=== PATIENT | female | born 1990 | race Hispanic/Latino ===

== ENCOUNTER 2017-07-31 10:17 | Day surgery (SDC) | payer OTHER ==
[2017-07-31] MEDS ORDERED: Midazolam HCl 2 mg/2 ml Vial ONE ×2 (12:44→12:48)
[2017-07-31 12:46] LABS: #Eosinphils 0.1 thou/uL (0.0-0.7); #Lymphocytes 1.3 thou/uL (1.20-3.40); #Monocytes 0.4 thou/uL (0.11-0.59); #Neutrophils 1.8 thou/uL (1.40-6.50); %Basophils 0.8 % (0.0-1.0); %Eosinophils 1.8 % (0.0-10.0); %Lymphocytes 35.2 % (21.0-51.0); %Monocytes 11.7 % (0.0-10.0); %Neutrophils 50.6 % (42.0-75.0); Hemoglobin 11.7 g/dL (12.0-16.0); Mean Corpuscular HGB CONC 32.6 g/dL (32.0-36.0); Mean Corpuscular Hemoglobin 30.5 pg (27.0-31.0); Mean Corpuscular Volume 93.6 fl (81.0-99.0); Platelet Count 220 thou/uL (130-400); RBC Distribution Width 12.5 % (11.5-14.5); Red Blood Cell (RBC) Count 3.84 mill/uL (4.20-5.40); White Blood Cell (WBC) Count 3.6 thou/uL (4.8-10.8)
[2017-07-31] MEDS ORDERED: HYDROmorphone 0.5 MG/0.5 ML SYRINGE ONE (12:48)
[2017-07-31] MEDS ORDERED: Lidocaine 1% w/Epinephrine 1:200K 30 ML VIAL ONE (12:57)
[2017-07-31] MEDS ORDERED: Ferric Subsulfate 8 ML BOT ONE (12:57)
[2017-07-31 13:17] LABS: BHCG - Serum Negative (NEGATIVE); Pregs Control Background? CLEAR/WHITE (CLR/WHITE); Pregs Control Bar Appear? YES (CONTROL BAR)
[2017-07-31] MEDS ORDERED: Lidocaine 1% PF 5 ML VIAL ONE (16:57)
[2017-07-31] MEDS ORDERED: PROPOFOL 200 MG/20 ML VIAL ONE (16:57)
[2017-07-31] MEDS ORDERED: Ondansetron HCl/PF 4 MG/2 ML Vial ONE (16:57)
[2017-07-31] MEDS ORDERED: Dexamethasone 20 MG/5 ML VIAL ONE (16:57)
--- NOTE | 2017-07-31 21:19 | OP ---
PREOPERATIVE DIAGNOSIS: Cervical intraepithelial neoplasia x3. POSTOPERATIVE DIAGNOSIS: Cervical intraepithelial neoplasia x3. PROCEDURE: Loop electrode excisional procedure. SURGEON: Lizy Guzman D.O. COMPLICATIONS: None. ESTIMATED BLOOD LOSS: 10 mL. ANESTHESIA: General. SPECIMEN: LEEP biopsy. FINDINGS: Normal appearing external genitalia, normal vaginal and cervical epithelium. INDICATIONS OF PROCEDURE: Ms. Kira Jeffery is a G4, P4 who presented to clinic with a high grade Pap smear. She had undergone a colposcopy with cervical biopsies and endocervical curettage, cervical biopsy at 5 o'clock displayed MEGAN-3, and the endocervical curettage was negative. The patient was counseled and due to severe anxiety and discomfort with pelvic exam in the office, the patient desired to have a procedure done in the operating room. PROCEDURE IN DETAIL: The patient was brought to the operating room. She was placed under general anesthesia. The patient was placed in dorsal lithotomy position using Errol stirrups. She was prepped and draped in sterile fashion and her bladder was drained using a straight catheterization. An official timeout was performed. An insulated single site speculum was placed into the vagina. The cervix was visualized. Cervix was grasped using a single tooth tenaculum and lidocaine with epinephrine was injected circumferentially with a total of 20 mL. A loop electrode was used to remove the LEEP specimen using a cut modality. The specimen required to be removed in multiple pieces. The LEEP site was then cauterized using the ball cautery to gain hemostasis and to desiccate any possible remaining abnormal tissue at the cervical bed. Monsel's was placed. The speculum was removed from the vagina. All counts were correct x2. The patient was placed back in supine position and was extubated without difficulty and transferred back to PACU in stable condition. [facility]
== END 2017-07-31 16:14 | disposition home or self-care (01) ==
LOC: SDC 10:17
PROVIDERS: ATTEND Obstetrics & Gynecology
PROC: 0UBC7ZX Excision of Cervix, Via Natural or Artificial Opening, Diagnostic (ICD-10-PCS; principal; 2017-07-31)
DX: R87.613 High grade squamous intraepithelial lesion on cytologic smear of cervix (HGSIL) (principal); Z98.51 Tubal ligation status; Z87.891 Personal history of nicotine dependence
CPT/HCPCS: 84703; 85025; 86850; 86900; 86901; 88307; J1100; J1170; J2001; J2250; J2405; J2704